=== PATIENT | female | born 1975 | race Caucasian/White ===

== ENCOUNTER 2017-07-19 11:07 | Emergency (ER) | payer OTHER ==
[~2017-07-19] VITALS: Ht 149.9 cm; Wt 81.6 kg
[2017-07-19 11:36] VITALS: BP 113/66
--- NOTE | 2017-07-19 11:36 | Urgent Treatment Center Report ---
History of Present Issue Date/Time Seen by Provider 07/19/17 1120 Visit Reason Pt arrived:Walked Presenting Problem:rt ear pain that started yesterday Location if Accident: Onset of symptoms date/time:/ or onset unknown for:MEDICAL HX UNKNOWN Have you (or family members/close friends) recently traveled outside the [place]? N If Yes, where/when: Have you had exposure to infectious disease within the past month? TB? Other? Specify: Patient state that she began to have pain in her right ear yesterday State that it has continued to get worse State that she is now having throbbing pain and it hurts when she opens her mouth State that she use to have frequent ear infections and it has been a little while since she had one ALLERGIES Coded Allergies: amoxicillin (Intermediate, 07/19/17) Home Medications Reported Medications METFORMIN HCL (Metformin) 1,000 MG PO BID OMEPRAZOLE MAGNESIUM (Prilosec 20MG) 20 MG PO DAILY Atorvastatin Calcium (Atorvastatin) 40 MG PO DAILY Glipizide (Glipizide 5MG) 5 MG PO DAILY History Medical History General Angina: Yes [place]: No Hypertension? Yes Hyperlipidemia? Yes CHF? No COPD? No Asthma? No Gastric ulcers? Yes CVA? No Seizures? No Diabetes? Yes Insulin Dependent: No Insulin Pump: No Home FSBS? No Renal Insuffiency? No UTI? No Stones? No BPH? No GB Disease: Yes Asplenia? No Hepatitis? No Sickle Cell Disease? No Arthritis? No Migraines? No Glaucoma? No MRSA? No TB? No Depression? No Cancer? No Immunization HX DT/Tetanus 1-4 YRS Surgical Hx Previous Surgery?Y TUBAL CHOLECYSTECTOMY Social History Smoking Hx Smoker: Current Every Day Smoker Tobacco: Yes Type Cigarettes Packs/day 1 1/2 - 2 Packs Alcohol Alcohol: No Review of Systems All Other Systems Reviewed and Negative ENT ear pain. Physical Exam Vital Signs Vital Signs Date Time Temp Pulse Resp B/P Pulse O2 O2 Flow FiO2 Ox Delivery Rate 07/19 1113 97.9 65 18 113/66 98 General Appearance normal appearance, WD/WN, no apparent distress Ear, Nose, Throat Right ear bright red, TM not visable Respiratory Status Yes: trachea midline, chest symmetrical, non tender chest. No: respiratory distress. 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 No Progress [facility] Progress Notes Comment Patient advised that she is allergic to amoxicillin however she is able to take Cephosporins without reaction. Patient educated that there is a chance for possibility of cross sensitivity between medication and educated on what to watch for Departure Departure Time of Disposition 1129 Disposition DC Home or Self Care(routine) Clinical Impression Primary Impression: Otitis media Qualifiers: Otitis media type: unspecified Chronicity: unspecified Laterality: right Qualified Code: H66.91 - Otitis media, unspecified, right ear Condition STABLE Patient Instructions DI for Otitis Media (Middle Ear Infection)-Child Additional Instructions Take Medication as prescribed Over the counter Motrin or Tylenol as needed for fever or pain Follow up with family doctor Return if needed Discharge Counseling Counseled pt/family regarding diagnosis, medications/RX, home care, follow up needs Prescriptions Current Visit Scripts CEFDINIR (Cefdinir) 300 MG PO BID #20 CAP at 1136
--- NOTE | 2017-07-19 11:36 | Urgent Treatment Center Report ---
History of Present Issue Date/Time Seen by Provider 07/19/17 1120 Visit Reason Pt arrived:Walked Presenting Problem:rt ear pain that started yesterday Location if Accident: Onset of symptoms date/time:/ or onset unknown for:MEDICAL HX UNKNOWN Have you (or family members/close friends) recently traveled outside the [place]? N If Yes, where/when: Have you had exposure to infectious disease within the past month? TB? Other? Specify: Patient state that she began to have pain in her right ear yesterday State that it has continued to get worse State that she is now having throbbing pain and it hurts when she opens her mouth State that she use to have frequent ear infections and it has been a little while since she had one ALLERGIES Coded Allergies: amoxicillin (Intermediate, 07/19/17) Home Medications Reported Medications METFORMIN HCL (Metformin) 1,000 MG PO BID OMEPRAZOLE MAGNESIUM (Prilosec 20MG) 20 MG PO DAILY Atorvastatin Calcium (Atorvastatin) 40 MG PO DAILY Glipizide (Glipizide 5MG) 5 MG PO DAILY History Medical History General Angina: Yes [place]: No Hypertension? Yes Hyperlipidemia? Yes CHF? No COPD? No Asthma? No Gastric ulcers? Yes CVA? No Seizures? No Diabetes? Yes Insulin Dependent: No Insulin Pump: No Home FSBS? No Renal Insuffiency? No UTI? No Stones? No BPH? No GB Disease: Yes Asplenia? No Hepatitis? No Sickle Cell Disease? No Arthritis? No Migraines? No Glaucoma? No MRSA? No TB? No Depression? No Cancer? No Immunization HX DT/Tetanus 1-4 YRS Surgical Hx Previous Surgery?Y TUBAL CHOLECYSTECTOMY Social History Smoking Hx Smoker: Current Every Day Smoker Tobacco: Yes Type Cigarettes Packs/day 1 1/2 - 2 Packs Alcohol Alcohol: No Review of Systems All Other Systems Reviewed and Negative ENT ear pain. Physical Exam Vital Signs Vital Signs Date Time Temp Pulse Resp B/P Pulse O2 O2 Flow FiO2 Ox Delivery Rate 07/19 1113 97.9 65 18 113/66 98 General Appearance normal appearance, WD/WN, no apparent distress Ear, Nose, Throat Right ear bright red, TM not visable Respiratory Status Yes: trachea midline, chest symmetrical, non tender chest. No: respiratory distress. 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 No Progress [facility] Progress Notes Comment Patient advised that she is allergic to amoxicillin however she is able to take Cephosporins without reaction. Patient educated that there is a chance for possibility of cross sensitivity between medication and educated on what to watch for Departure Departure Time of Disposition 1129 Disposition DC Home or Self Care(routine) Clinical Impression Primary Impression: Otitis media Qualifiers: Otitis media type: unspecified Chronicity: unspecified Laterality: right Qualified Code: H66.91 - Otitis media, unspecified, right ear Condition STABLE Patient Instructions DI for Otitis Media (Middle Ear Infection)-Child Additional Instructions Take Medication as prescribed Over the counter Motrin or Tylenol as needed for fever or pain Follow up with family doctor Return if needed Discharge Counseling Counseled pt/family regarding diagnosis, medications/RX, home care, follow up needs Prescriptions Current Visit Scripts CEFDINIR (Cefdinir) 300 MG PO BID #20 CAP at 1136
== END 2017-07-19 11:40 | disposition home or self-care (01) ==
LOC: UTC 11:07
DX: H66.91 Otitis media, unspecified, right ear (principal); F17.210 Nicotine dependence, cigarettes, uncomplicated; I10 Essential (primary) hypertension; E11.9 Type 2 diabetes mellitus without complications; E78.5 Hyperlipidemia, unspecified; Z79.899 Other long term (current) drug therapy; Z87.11 Personal history of peptic ulcer disease; Z79.84 Long term (current) use of oral hypoglycemic drugs; Z88.1 Allergy status to other antibiotic agents

== ENCOUNTER 2017-08-18 09:45 | Emergency (ER) | payer OTHER ==
[~2017-08-18] VITALS: Ht 149.9 cm; Wt 81.6 kg
[~2017-08-18 09:45] MED LIST: AMOXICILLIN 50500 MG PO; AURALGAN OT10 ML/BOT OT; BIAXIN500 MG PO; FLEXERIL10 MG PO; GLIPIZIDE 5MG TA5 MG PO; HYDROCODONE1 TABLET PO; IBU800 M1 PO; LIPITOR40 MG PO; LORTAB 5/500 501 TAB PO; METFORMIN1000 MG PO; OMNICEF 300 MG300 MG PO; PRILOSEC20 M1 PO; VENTOLIN H0.09 MG/Ac IH; ZYRTEC5 MG PO
--- OUTSIDE RECORDS SUMMARY | 2017-08-18 09:48 | External Medical Summary Rpt | CCD ---
Author Author [employer] Address Unknown Phone Unavailable Purpose Continuity of Care Document - through 2016
--- OUTSIDE RECORDS SUMMARY | 2017-08-18 09:48 | External Medical Summary Rpt | CCD ---
Author Author , [employer] Address Unknown Phone Purpose Continuity of Care Document - through 2016
--- OUTSIDE RECORDS SUMMARY | 2017-08-18 09:48 | External Medical Summary Rpt | CCD ---
Author Author , [employer] Address Unknown Phone [email or web address] Purpose Continuity of Care Document - through 2016
--- OUTSIDE RECORDS SUMMARY | 2017-08-18 09:49 | External Medical Summary Rpt | CCD ---
Demographics Preferred Language Ukrainian Marital Status Unknown Congregational Affiliation Unknown Race Unknown Ethnic Group Unknown Author Author , [employer] Address Unknown Phone Immunization No patient found.
--- OUTSIDE RECORDS SUMMARY | 2017-08-18 09:49 | External Medical Summary Rpt | CCD ---
Demographics Preferred Language Pashto Marital Status Unknown Hoahaoism Affiliation Unknown Race Unknown Ethnic Group Unknown Author Author , [employer]TE PER[employer] Address Unknown Phone Immunization No patient found.
--- OUTSIDE RECORDS SUMMARY | 2017-08-18 09:49 | External Medical Summary Rpt ---
Author Author [employer] Neil, [employer] Organization [employer] Address Unknown Phone Unavailable
[2017-08-18 10:09] LABS: UTC STREP SCREEN NOT DETECTED (NOTDETECTED)
[2017-08-18] MEDS ORDERED: OMNICEF 300 MG300 MG PO (10:10)
[2017-08-18 10:12] VITALS: BP 148/104
--- NOTE | 2017-08-18 10:12 | Urgent Treatment Center Report ---
History of Present Issue Date/Time Seen by Provider 08/18/17958 Visit Reason Pt arrived:Walked Presenting Problem:PT C/O OF CHILLS, BODY ACHES, SORE THROAT, HEADACHE, COUGH. Location if Accident: Onset of symptoms date/time:08/17/17 or onset unknown for: Have you (or family members/close friends) recently traveled outside the [place]? N If Yes, where/when: Have you had exposure to infectious disease within the past month? TB? Other? Specify: Patient state that daughter was diagnosed yesterday with Strep throat State that she has been having chills, body aches, sore throat, headache and cough State that she has felt feverish but unsure if she has had a fever State that she began feeling bad last nigtht and it has continued to get worse since last night. State that this morning she woke up and felt worse so she came in to get checked ALLERGIES Coded Allergies: amoxicillin (Intermediate, 07/19/17) Home Medications Reported Medications METFORMIN HCL (Metformin) 1,000 MG PO BID OMEPRAZOLE MAGNESIUM (Prilosec 20MG) 20 MG PO DAILY Atorvastatin Calcium (Atorvastatin) 40 MG PO DAILY Glipizide (Glipizide 5MG) 5 MG PO DAILY History Medical History General Angina: Yes [place]: No Hypertension? Yes Hyperlipidemia? Yes CHF? No COPD? No Asthma? No Gastric ulcers? Yes CVA? No Seizures? No Diabetes? Yes Insulin Dependent: No Insulin Pump: No Home FSBS? No Renal Insuffiency? No UTI? No Stones? No BPH? No GB Disease: Yes Asplenia? No Hepatitis? No Sickle Cell Disease? No Arthritis? No Migraines? No Glaucoma? No MRSA? No TB? No Depression? No Cancer? No Immunization HX DT/Tetanus 1-4 YRS Surgical Hx Previous Surgery?Y TUBAL CHOLECYSTECTOMY Social History Smoking Hx Smoker: Current Every Day Smoker Tobacco: Yes Type Cigarettes Packs/day 1 1/2 - 2 Packs Alcohol Alcohol: No Review of Systems All Other Systems Reviewed and Negative Constitutional chills ENT ear pain, nose congestion, throat pain. Respiratory cough, denies shortness of breath, denies wheezing Gastrointestinal denies nausea, denies vomiting Psychiatric/Neurological headache Physical Exam Vital Signs Vital Signs Date Time Temp Pulse Resp B/P Pulse O2 O2 Flow FiO2 Ox Delivery Rate 10/19 0954 99.7 85 20 148/104 99 General Appearance no apparent distress, fatigued Ear, Nose, Throat sinus pain/drainage, nasal congestion, Throat red irritated drainage noted, right ear red, TM buldging Respiratory Status Yes: trachea midline, chest symmetrical, non tender chest. No: respiratory distress. Lung Sounds bilateral: normal breath sounds, lungs clear. Cardiovascular normal exam, regular rate/rhythm Neurologic alert, normal exam, oriented x 3 Medical Decision Making LABS/Meds/Orders Pt receiving controlled substance in ED? No Results/Orders Laboratory Tests 08/18/17 1007: Influenza Type A Ag NOT DETECTED, Influenza Type B Ag NOT DETECTED, Group A Strep Screen NOT DETECTED Orders Procedure Date/time Status UTC STREP SCREEN 08/18 1007 Complete UTC FLU A,B 08/18 1007 Complete Progress [place] Progress Notes Comment Patient advised that she is allergic to amoxicillin however she has taken Cephosporins without any reaction Patient educated on risk of cross sensitivity for reaction between the two medication Departure Departure Time of Disposition 1005 Disposition DC Home or Self Care(routine) Clinical Impression Primary Impression: Otitis media Qualifiers: Otitis media type: unspecified Laterality: right Qualified Code: H66.91 - Otitis media, unspecified, right ear Condition STABLE Referrals REESE BAUTISTA (Family): 3 Days-Call Office if no improvement in symtoms Patient Instructions DI for Otitis Media (Middle Ear Infection)-Child Additional Instructions * Monitor Temp. Tylenol and/or Ibuprofen as needed. ER if fever is no less than 101 despite alternating Tylenol and Ibuprofen * Encourage fluids, water, Gatorade, powerade, pedialyte if infant/toddler/or child * Warm salt water gargles for throat irritation *Warm fluids *Sore throat lozenges *Sleep elevated *humidifier or vaporizer Lots of rest Increase fluids, water, Gatorade, powerade Discharge Counseling Counseled pt/family regarding diagnosis, test results, medications/RX, home care, follow up needs Prescriptions Current Visit Scripts CEFDINIR (Cefdinir) 300 MG PO BID #20 CAP at 1012
== END 2017-08-18 10:15 | disposition home or self-care (01) ==
LOC: UTC 09:45
PROVIDERS: Nurse Practitioner
DX: H66.91 Otitis media, unspecified, right ear (principal); I10 Essential (primary) hypertension; E78.5 Hyperlipidemia, unspecified; E11.9 Type 2 diabetes mellitus without complications; F17.210 Nicotine dependence, cigarettes, uncomplicated; Z88.1 Allergy status to other antibiotic agents; Z87.11 Personal history of peptic ulcer disease